=== PATIENT | female | born 2000 | race Caucasian/White ===

== ENCOUNTER 2019-04-27 17:57 | Outpatient (CLI) | payer BC ==
--- NOTE | 2019-04-27 17:45 | NUR ---
ANNITA SHARPE presented to unit via AMBULATION from ED, accompanied by MOTHER, with c/o NO MOVEMENT. ANNITA SHARPE weighed, gowned, voided, and to bed. , VS taken. ANNITA SHARPE oriented to bed controls, call light, TV, heat, and A/C controls.
[2019-04-27 18:09] VITALS: BP 132/85
--- NOTE | 2019-04-27 18:09 | NUR ---
PT REPORTS NO MOVEMENT SINCE SATURDAY, EXCEPT FOR SOME SMALL MOVEMENTS AT NIGHT. PT DENIES LEAKING OF FLUID, CONTRACTIONS, VAGINAL BLEEDING OR PAIN. ASSESSMENT COMPLETED, VSS, FHT DOPPLER AT 142-145, PLAN OF CARE EXPLAINED, NO QUESTIONS NOTED.
--- NOTE | 2019-04-27 18:15 | NUR ---
DR LUNA CALLED, NEW ORDERS RECEIVED TO OBTAIN FHTS AND VS AND D/C HOME WITH LABOR PRECAUTIONS AND KICK COUNT INFORMATION.
--- NOTE | 2019-04-27 18:53 | NUR ---
DISCHARGE INSTRUCTIONS EXPLAINED TO PT AND MOTHER, NO QUESTIONS NOTED, VSS, PT AWARE OF LABOR PRECAUTIONS AND KICK COUNT, AMBULATED TO PRIVATE CAR WITH FAMILY MEMBER AT SIDE NO DISTRESS NOTED.
--- NOTE | 2019-04-28 08:31 | Physician Query-Final Dx ---
Clinic Account Progress/Dx Physician Query: Please give diagnosis Please give # weeks gestation Date of Service Apr 27, 2019 at 17:57 KIRAN RAINEY Apr 28, 2019 08:31
== END 2019-04-27 18:53 | disposition home or self-care (01) ==
LOC: LDRP 17:57 → WSo 17:57
PROVIDERS: ATTEND Family Medicine
DX: O36.8120 Decreased fetal movements, second trimester, not applicable or unspecified (principal); Z3A.25 25 weeks gestation of pregnancy
CPT/HCPCS: 99212